=== PATIENT | female | born 1955 | race Caucasian/White ===

== ENCOUNTER 2021-06-20 02:10 | Day surgery (SDC) | payer MEDICARE ==
[~2021-06-20] VITALS: Wt 59.7 kg
[2021-06-20] MEDS ORDERED: Prednisone20 MG PO (09:03)
[2021-06-20] MEDS ORDERED: OXYC5 PO (09:04)
[2021-06-20] MEDS ORDERED: TEMAZEPAM PO (09:04)
[2021-06-20] MEDS ORDERED: ALPRAZOLAM0.5 M1 PO (09:04)
[2021-06-20] MEDS ORDERED: PROGESTERONE5000 GM MC (09:05)
[2021-06-20] MEDS ORDERED: INFLECTRA100 MG IV (09:07)
[2021-06-20] MEDS ORDERED: Azasan100 MG (09:10)
--- NOTE | 2021-06-20 11:25 | NUR ---
PT UP TO BR WITH STAND BY ASSIST ONLY. STATES HER VISON IS BETTER. PT DID NOT HAVE PROBLEMS WITH STANDING AND WALKING TO BR.
== END 2021-06-20 11:32 | disposition home or self-care (01) ==
LOC: ATC 02:10
DX: K50.10 Crohn's disease of large intestine without complications (principal)
CPT/HCPCS: 96413; 96415; J7050; Q5103

== ENCOUNTER 2021-07-04 00:44 | Day surgery (SDC) | payer MEDICARE ==
[~2021-07-04] VITALS: Wt 63.4 kg
[~2021-07-04 00:44] MED LIST: ALPRAZOLAM0.5 M1 PO; Azasan100 MG; INFLECTRA100 MG IV; OXYC5 PO; PROGESTERONE5000 GM MC; Prednisone20 MG PO; TEMAZEPAM PO
[2021-07-04] MEDS ORDERED: ACYC400 PO (10:12)
== END 2021-07-04 11:20 | disposition home or self-care (01) ==
LOC: ATC 00:44
DX: K50.111 Crohn's disease of large intestine with rectal bleeding (principal); Z88.5 Allergy status to narcotic agent; Z88.0 Allergy status to penicillin; Z79.52 Long term (current) use of systemic steroids
CPT/HCPCS: 96413; 96415; J7050; Q5103

== ENCOUNTER 2021-08-01 03:09 | Day surgery (SDC) | payer MEDICARE, OTHER ==
[~2021-08-01] VITALS: Wt 63.3 kg
[~2021-08-01 03:09] MED LIST changes: +ACYC400 PO
== END 2021-08-01 11:35 | disposition home or self-care (01) ==
LOC: ATC 03:09
DX: K50.10 Crohn's disease of large intestine without complications (principal)
CPT/HCPCS: 96413; 96415; A9270; J7050; Q5103

== ENCOUNTER 2021-11-28 01:13 | Day surgery (SDC) | payer MEDICARE, OTHER ==
[~2021-11-28] VITALS: Wt 64.4 kg
== END 2021-11-28 11:48 | disposition home or self-care (01) ==
LOC: ATC 01:13
DX: K50.10 Crohn's disease of large intestine without complications (principal); Z88.0 Allergy status to penicillin; Z88.5 Allergy status to narcotic agent
CPT/HCPCS: A9270; J7050; Q5103

== ENCOUNTER 2022-01-23 00:52 | Day surgery (SDC) | payer MEDICARE, OTHER | END 2022-01-23 15:32 | disposition home or self-care (01) | LOC: ATC 00:52 | DX: K50.10 Crohn's disease of large intestine without complications (principal); Z88.5 Allergy status to narcotic agent; Z88.0 Allergy status to penicillin | CPT/HCPCS: A9270; J7050; Q5103 ==

== ENCOUNTER 2022-03-15 00:59 | Day surgery (SDC) | payer MEDICARE, OTHER | END 2022-03-15 17:09 | disposition home or self-care (01) | LOC: ATC 00:59 | DX: K50.10 Crohn's disease of large intestine without complications (principal) | CPT/HCPCS: 96413; 96415; A9270; J7050; Q5103 ==

== ENCOUNTER 2022-05-17 02:49 | Day surgery (SDC) | payer MEDICARE, OTHER ==
[~2022-05-17] VITALS: Wt 64.8 kg
[2022-05-17] MEDS ORDERED: ACYC400 PO (08:56)
== END 2022-05-17 11:37 | disposition home or self-care (01) ==
LOC: ATC 02:49
DX: K50.10 Crohn's disease of large intestine without complications (principal)
CPT/HCPCS: 96413; 96415; A9270; J7050; Q5103

== ENCOUNTER 2022-07-17 07:24 | Day surgery (SDC) | payer MEDICARE, OTHER | END 2022-07-17 12:25 | disposition home or self-care (01) | LOC: ATC 07:24 | DX: K50.10 Crohn's disease of large intestine without complications (principal); Z88.5 Allergy status to narcotic agent; Z88.0 Allergy status to penicillin | CPT/HCPCS: 96413; 96415; A9270; J7050; Q5103 ==

== ENCOUNTER 2022-09-19 00:43 | Day surgery (SDC) | payer MEDICARE, OTHER ==
[~2022-09-19] VITALS: Wt 64.0 kg
[2022-09-19] MEDS ORDERED: INFLECTRA100 MG IV (09:11)
== END 2022-09-19 11:50 | disposition home or self-care (01) ==
LOC: ATC 00:43
DX: K50.10 Crohn's disease of large intestine without complications (principal); Z88.5 Allergy status to narcotic agent; Z88.0 Allergy status to penicillin
CPT/HCPCS: 96413; 96415; A9270; J7050; Q5103

== ENCOUNTER 2022-11-21 00:09 | Day surgery (SDC) | payer MEDICARE, OTHER ==
[~2022-11-21] VITALS: Wt 65.0 kg
== END 2022-11-21 11:19 | disposition home or self-care (01) ==
LOC: ATC 00:09
DX: K50.10 Crohn's disease of large intestine without complications (principal); Z88.0 Allergy status to penicillin
CPT/HCPCS: 96413; 96415; A9270; J7050; Q5103

== ENCOUNTER 2023-03-10 11:20 | Emergency (ER) | payer MEDICARE, OTHER ==
[~2023-03-10] VITALS: Ht 160 cm; Wt 63.0 kg
[2023-03-10 11:55] LABS: BASOPHILS ABSOLUTE AUTO 0.04 K/mm3 (0.00-0.23); BASOPHILS PERCENT AUTO 0 % (0-2); EOSINOPHILS ABSOLUTE AUTO 0.08 K/mm3 (0.00-0.68); EOSINOPHILS PERCENT AUTO 1 % (0-6); Hematocrit 44.1 % (33.0-51.0); Hemoglobin 15.1 g/dL (11.5-16.0); IMMATURE GRAN ABSOLUTE AUTO 0.05 K/mm3 (0.00-0.10); IMMATURE GRAN PERCENT AUTO 1 % (0-1); LYMPHOCYTES ABSOLUTE AUTO 1.82 K/mm3 (0.84-5.20); LYMPHOCYTES PERCENT AUTO 17 % (21-46); MONOCYTES ABSOLUTE AUTO 0.62 K/mm3 (0.16-1.47); MONOCYTES PERCENT AUTO 6 % (4-13); Mean Corpuscular HGB 30.4 pg (26.0-34.0); Mean Corpuscular HGB Conc 34.2 g/dL (31.5-36.5); Mean Corpuscular Volume 89 fL (80-100); Mean Platelet Volume 9.6 fL (9.1-12.4); NEUTROPHILS ABSOLUTE AUTO 7.86 K/mm3 (1.96-9.15); NEUTROPHILS PERCENT AUTO 75 % (41-73); Platelet Count 251 K/mm3 (150-400); RDW Coefficient Variation 12.9 % (11.7-14.2); RDW Standard Deviation 42.5 fL (35.1-46.3); Red Blood Cell Count 4.97 M/mm3 (3.80-5.20); White Blood Cell Count 10.47 K/mm3 (4.00-11.30)
[2023-03-10 12:18] LABS: Albumin/Globulin Ratio 1.1 (0.8-1.8); Bilirubin, Total 0.3 mg/dL (0.1-1.0); Bun/Creatinine Ratio 18.7 (12.0-20.0); Calcium, Blood 9.1 mg/dL (8.5-10.1); Creatinine, Blood 0.8 mg/dL (0.40-1.00); Globulin, Blood 3.5 g/dL (2.2-4.0); Total Protein, Blood 7.5 g/dL (6.4-8.2)
[2023-03-10 15:01] VITALS: BP 155/68
== END 2023-03-10 15:03 | disposition home or self-care (01) ==
LOC: ER 11:20
PROVIDERS: Physician Assistant
DX: R07.89 Other chest pain (principal); Z88.0 Allergy status to penicillin; Z88.2 Allergy status to sulfonamides; Z91.018 Allergy to other foods
CPT/HCPCS: 71046; 80053; 83690; 84484; 85025; 93005; 93010; 99285-25

== ENCOUNTER 2023-03-14 00:31 | Day surgery (SDC) | payer MEDICARE, OTHER ==
[2023-03-14 13:51] VITALS: BP 147/87
== END 2023-03-14 16:31 | disposition home or self-care (01) ==
LOC: ATC 00:31
DX: K50.10 Crohn's disease of large intestine without complications (principal); Z88.5 Allergy status to narcotic agent; Z88.0 Allergy status to penicillin; Z88.8 Allergy status to other drugs, medicaments and biological substances
CPT/HCPCS: 96413; 96415; A9270; J7050; Q5103

== ENCOUNTER 2023-05-15 01:02 | Day surgery (SDC) | payer MEDICARE, OTHER ==
[2023-05-15 08:46] VITALS: BP 139/62
== END 2023-05-15 11:44 | disposition home or self-care (01) ==
LOC: ATC 01:02
DX: K50.10 Crohn's disease of large intestine without complications (principal); Z88.5 Allergy status to narcotic agent; Z88.2 Allergy status to sulfonamides; Z88.0 Allergy status to penicillin
CPT/HCPCS: 96413; 96415; A9270; J7050; Q5103

== ENCOUNTER 2023-07-22 02:21 | Day surgery (SDC) | payer MEDICARE, OTHER ==
[2023-07-22 15:00] VITALS: BP 141/74
== END 2023-07-22 22:59 | disposition home or self-care (01) ==
LOC: ATC 02:21
DX: K50.10 Crohn's disease of large intestine without complications (principal)
CPT/HCPCS: 96413; 96415; A9270; J7050; Q5103

== ENCOUNTER 2023-10-09 01:09 | Day surgery (SDC) | payer MEDICARE, BC ==
[~2023-10-09] VITALS: Wt 63.7 kg
[2023-10-09 07:44] VITALS: BP 138/71
== END 2023-10-09 10:22 | disposition home or self-care (01) ==
LOC: ATC 01:09
DX: K50.10 Crohn's disease of large intestine without complications (principal); Z88.5 Allergy status to narcotic agent; Z88.0 Allergy status to penicillin; Z79.899 Other long term (current) drug therapy
CPT/HCPCS: 96413; 96415; A9270; J7050; Q5103

== ENCOUNTER 2023-12-18 00:57 | Day surgery (SDC) | payer MEDICARE, BC ==
[2023-12-18] MEDS ORDERED: DiphenhydrAMINE HCL 25 MG Cap PO PRN (07:05)
[2023-12-18 13:58] VITALS: BP 162/59
[2023-12-18] MEDS ORDERED: Infliximab-DYYB 300 MG in NS 250 ML IV SCH (14:10)
== END 2023-12-18 16:56 | disposition home or self-care (01) ==
LOC: ATC 00:57
DX: K50.10 Crohn's disease of large intestine without complications (principal); Z88.5 Allergy status to narcotic agent; Z88.0 Allergy status to penicillin
CPT/HCPCS: 96413; 96415; A9270; J7050; Q5103

== ENCOUNTER 2024-04-29 03:08 | Day surgery (SDC) | payer MEDICARE, BC ==
[2024-04-29] MEDS ORDERED: DiphenhydrAMINE HCL 25 MG Cap PO SCH (06:50)
[2024-04-29 13:44] VITALS: BP 157/85
[2024-04-29] MEDS ORDERED: Infliximab-DYYB 300 MG in NS 250 ML IV SCH (13:50)
== END 2024-04-29 16:31 | disposition home or self-care (01) ==
LOC: ATC 03:08
DX: K50.10 Crohn's disease of large intestine without complications (principal); K21.9 Gastro-esophageal reflux disease without esophagitis; Z88.2 Allergy status to sulfonamides; Z88.5 Allergy status to narcotic agent; Z88.0 Allergy status to penicillin; Z88.8 Allergy status to other drugs, medicaments and biological substances; Z79.899 Other long term (current) drug therapy
CPT/HCPCS: 96413; 96415; A9270; J7050; Q5103

== ENCOUNTER → 2024-06-22 | Outpatient (CLI) | payer MEDICARE, BC ==
[2024-06-22 16:56] LABS: Bacterial Vaginosis PCR Negative (NEGATIVE); Candida Group, PCR NOT DETECTED (NOT DETECT); Candida glabrata-krusei, PCR NOT DETECTED (NOT DETECT)
== END | disposition home or self-care (01) ==
LOC: LAB 13:47 → LAB SHORT 13:47
PROVIDERS: Obstetrics & Gynecology
DX: B37.9 Candidiasis, unspecified (principal)
CPT/HCPCS: 87481; 87661; 87801

== ENCOUNTER 2024-07-01 02:11 | Day surgery (SDC) | payer MEDICARE, BC ==
[~2024-07-01] VITALS: Wt 63.5 kg
[2024-07-01] MEDS ORDERED: DiphenhydrAMINE HCL 25 MG Cap PO SCH (07:15)
[2024-07-01 13:33] VITALS: BP 133/94
[2024-07-01] MEDS ORDERED: Infliximab-DYYB 300 MG in NS 250 ML IV SCH (14:00)
== END 2024-07-01 16:23 | disposition home or self-care (01) ==
LOC: ATC 02:11
DX: K50.10 Crohn's disease of large intestine without complications (principal); K21.9 Gastro-esophageal reflux disease without esophagitis; Z88.5 Allergy status to narcotic agent; Z88.2 Allergy status to sulfonamides; Z88.0 Allergy status to penicillin; Z98.890 Other specified postprocedural states
CPT/HCPCS: 96413; 96415; A9270; J7050; Q5103

== ENCOUNTER 2024-09-10 03:28 | Day surgery (SDC) | payer MEDICARE, BC ==
[2024-09-10] MEDS ORDERED: DiphenhydrAMINE HCL 25 MG Cap PO SCH (06:55)
[2024-09-10 13:50] VITALS: BP 158/76
[2024-09-10] MEDS ORDERED: Infliximab-DYYB 300 MG in NS 250 ML IV SCH (14:00)
== END 2024-09-10 16:37 | disposition home or self-care (01) ==
LOC: ATC 03:28
DX: K50.10 Crohn's disease of large intestine without complications (principal); K21.9 Gastro-esophageal reflux disease without esophagitis; Z88.0 Allergy status to penicillin; Z88.2 Allergy status to sulfonamides; Z88.5 Allergy status to narcotic agent; Z88.8 Allergy status to other drugs, medicaments and biological substances
CPT/HCPCS: 96413; 96415; A9270; J7050; Q5103

== ENCOUNTER 2024-11-29 02:38 | Day surgery (SDC) | payer MEDICARE, BC ==
[2024-11-29 14:55] VITALS: BP 145/78
[2024-11-29] MEDS ORDERED: Infliximab-DYYB 300 MG in NS 250 ML IV SCH (15:15)
[2024-11-29] MEDS ORDERED: DiphenhydrAMINE HCL 25 MG Cap ONE (16:36)
[2024-11-29] MEDS ORDERED: DiphenhydrAMINE HCL 25 MG Cap PO PRN (16:40)
== END 2024-11-29 17:41 | disposition home or self-care (01) ==
LOC: ATC 02:38
DX: K50.10 Crohn's disease of large intestine without complications (principal); K21.9 Gastro-esophageal reflux disease without esophagitis; M79.641 Pain in right hand; M79.642 Pain in left hand
CPT/HCPCS: 36415; 80230; 82397; 85651; 86039; 86060; 86140; 86430; 86431; 96413; 96415; A9270; J7050; Q5103

== ENCOUNTER 2024-12-30 01:28 | Day surgery (SDC) | payer MEDICARE, BC ==
[~2024-12-30 01:28] MED LIST changes: +RISANKIZUMAB-RZAA 600 MG in NS 250 ML IV SCH
[2024-12-30 09:58] VITALS: BP 161/80
== END 2024-12-30 11:50 | disposition home or self-care (01) ==
LOC: ATC 01:28
DX: K50.10 Crohn's disease of large intestine without complications (principal); K21.9 Gastro-esophageal reflux disease without esophagitis; Z79.52 Long term (current) use of systemic steroids; Z79.899 Other long term (current) drug therapy; Z88.0 Allergy status to penicillin; Z88.5 Allergy status to narcotic agent; Z88.2 Allergy status to sulfonamides; Z88.8 Allergy status to other drugs, medicaments and biological substances
CPT/HCPCS: 96365; J2327; J7050

== ENCOUNTER 2025-01-28 04:21 | Day surgery (SDC) | payer MEDICARE, BC ==
[2025-01-28 15:13] VITALS: BP 130/68
== END 2025-01-28 16:47 | disposition home or self-care (01) ==
LOC: ATC 04:21
DX: K50.10 Crohn's disease of large intestine without complications (principal); Z79.52 Long term (current) use of systemic steroids; Z88.0 Allergy status to penicillin; Z88.2 Allergy status to sulfonamides; Z88.5 Allergy status to narcotic agent
CPT/HCPCS: 96365; J2327; J7050

== ENCOUNTER 2025-02-28 08:38 | Day surgery (SDC) | payer MEDICARE, BC ==
[2025-02-28 14:58] VITALS: BP 140/66
[2025-02-28] MEDS ORDERED: SKYRIZI600 MG/10 IV (17:46)
--- NOTE | 2025-02-28 18:03 | NUR ---
Sent copy of today's chart notes to Dr. Vega's office to update him on pt's complaints that she feels may be related to her skyrizi infusions.
== END 2025-02-28 16:45 | disposition home or self-care (01) ==
LOC: ATC 08:38
DX: K50.10 Crohn's disease of large intestine without complications (principal); K21.9 Gastro-esophageal reflux disease without esophagitis; Z88.0 Allergy status to penicillin; Z88.2 Allergy status to sulfonamides; Z88.5 Allergy status to narcotic agent; Z88.8 Allergy status to other drugs, medicaments and biological substances
CPT/HCPCS: 96365; J2327; J7050

== ENCOUNTER → 2025-03-04 | Outpatient (CLI) | payer MEDICARE, BC ==
[~2025-03-04] MED LIST changes: -RISANKIZUMAB-RZAA 600 MG in NS 250 ML IV SCH; +SKYRIZI600 MG/10 IV
[2025-03-07 18:38] LABS: CALPROTECTIN,FECAL 9 ug/g (<=49)
== END ==
LOC: LAB 10:32 → LAB SHORT 10:32 → LAB FUT 02-28 17:05
PROVIDERS: Internal Medicine Gastroenterology
DX: K50.90 Crohn's disease, unspecified, without complications (principal)
CPT/HCPCS: 83993

== ENCOUNTER 2025-03-24 02:00 | Day surgery (SDC) | payer MEDICARE, BC ==
[2025-03-24] MEDS ORDERED: Vedolizumab 300 MG in NS 250 ML IV SCH (06:00)
[2025-03-24 07:45] VITALS: BP 134/65
[2025-03-24] MEDS ORDERED: ENTYVIO300 M1 IV (09:21)
== END 2025-03-24 09:16 | disposition home or self-care (01) ==
LOC: ATC 02:00
DX: K50.10 Crohn's disease of large intestine without complications (principal); K21.9 Gastro-esophageal reflux disease without esophagitis; Z88.0 Allergy status to penicillin; Z88.2 Allergy status to sulfonamides; Z88.5 Allergy status to narcotic agent; Z88.8 Allergy status to other drugs, medicaments and biological substances
CPT/HCPCS: 96365; J3380; J7050

== ENCOUNTER 2025-04-06 01:03 | Day surgery (SDC) | payer MEDICARE, BC ==
[~2025-04-06 01:03] MED LIST changes: +ENTYVIO300 M1 IV
[2025-04-06] MEDS ORDERED: Vedolizumab 300 MG in NS 250 ML IV SCH (06:00)
[2025-04-06 11:40] VITALS: BP 134/78
== END 2025-04-06 13:00 | disposition home or self-care (01) ==
LOC: ATC 01:03
DX: K50.10 Crohn's disease of large intestine without complications (principal); K21.9 Gastro-esophageal reflux disease without esophagitis; Z79.899 Other long term (current) drug therapy; Z88.0 Allergy status to penicillin; Z88.2 Allergy status to sulfonamides; Z88.5 Allergy status to narcotic agent
CPT/HCPCS: 96365; J3380; J7050

== ENCOUNTER 2025-04-28 02:47 | Day surgery (SDC) | payer MEDICARE, BC ==
[2025-04-28] MEDS ORDERED: Vedolizumab 300 MG in NS 250 ML IV SCH (06:00)
== END 2025-04-28 23:00 | disposition home or self-care (01) ==
LOC: ATC 02:47
DX: K50.10 Crohn's disease of large intestine without complications (principal); Z79.899 Other long term (current) drug therapy; Z88.0 Allergy status to penicillin; Z88.2 Allergy status to sulfonamides; Z88.5 Allergy status to narcotic agent

== ENCOUNTER 2025-05-03 03:02 | Day surgery (SDC) | payer MEDICARE, BC ==
[2025-05-03 13:45] VITALS: BP 130/97
== END 2025-05-03 14:55 | disposition home or self-care (01) ==
LOC: ATC 03:02
DX: K50.10 Crohn's disease of large intestine without complications (principal); K21.9 Gastro-esophageal reflux disease without esophagitis; Z79.899 Other long term (current) drug therapy; Z88.5 Allergy status to narcotic agent; Z88.0 Allergy status to penicillin; Z88.2 Allergy status to sulfonamides; Z88.8 Allergy status to other drugs, medicaments and biological substances
CPT/HCPCS: 96365; J3380; J7050

== ENCOUNTER 2025-06-28 00:51 | Day surgery (SDC) | payer MEDICARE, BC ==
[2025-06-28 10:27] VITALS: BP 158/77
== END 2025-06-28 11:58 | disposition home or self-care (01) ==
LOC: ATC 00:51
DX: K50.10 Crohn's disease of large intestine without complications (principal); K21.9 Gastro-esophageal reflux disease without esophagitis; Z79.899 Other long term (current) drug therapy; Z88.0 Allergy status to penicillin; Z88.5 Allergy status to narcotic agent; Z88.2 Allergy status to sulfonamides
CPT/HCPCS: 96365; J3380; J7050

== ENCOUNTER 2025-08-22 03:50 | Day surgery (SDC) | payer MEDICARE, BC ==
[2025-08-22 14:28] VITALS: BP 129/63
== END 2025-08-22 15:30 | disposition home or self-care (01) ==
LOC: ATC 03:50
DX: K50.10 Crohn's disease of large intestine without complications (principal); Z88.0 Allergy status to penicillin; Z88.2 Allergy status to sulfonamides; Z88.8 Allergy status to other drugs, medicaments and biological substances; Z88.5 Allergy status to narcotic agent
CPT/HCPCS: 96365; J3380; J7050

== ENCOUNTER 2025-10-14 06:28 | Day surgery (SDC) | payer MEDICARE, BC ==
[2025-10-14 09:49] VITALS: BP 153/68
[2025-10-14] MEDS ORDERED: DiphenhydrAMINE HCl 50 MG/ML 1ML Vial IV SCH (10:55)
[2025-10-14] MEDS ORDERED: DiphenhydrAMINE HCl 50 MG/ML 1ML Vial ONE (10:55)
[2025-10-14] MEDS ORDERED: DiphenhydrAMINE HCl 50 MG/ML 1ML Vial IV PRN (11:20)
== END 2025-10-14 11:42 | disposition home or self-care (01) ==
LOC: ATC 06:28
DX: K50.10 Crohn's disease of large intestine without complications (principal); K21.9 Gastro-esophageal reflux disease without esophagitis; Z88.0 Allergy status to penicillin; Z88.2 Allergy status to sulfonamides; Z88.8 Allergy status to other drugs, medicaments and biological substances; Z88.5 Allergy status to narcotic agent
CPT/HCPCS: 96365; 96413; J1200; J3380; J7050